=== PATIENT | male | born 2000 | race African-American/Black ===

== ENCOUNTER 2024-01-17 16:28 | Emergency (ER) | payer OTHER ==
[~2024-01-17] VITALS: Ht 193 cm; Wt 79.8 kg
[2024-01-17 16:28] VITALS: O2SAT 99
[2024-01-17] MEDS ORDERED: ONDANSETRON 4 MG/2 ML VIAL ONE (17:03)
[2024-01-17] MEDS ORDERED: HYDROMORPHONE 1 MG/1 ML DISP.SYRIN ONE (17:04)
[2024-01-17] MEDS: ONDANSETRON 4 MG/2 ML VIAL IV ONE (17:08)
[2024-01-17] MEDS: HYDROMORPHONE 1 MG/1 ML DISP.SYRIN IV ONE (17:08)
[2024-01-17] MEDS ORDERED: LIDOCAINE HCL 1% 20 ML VIAL ONE (17:17)
[2024-01-17] MEDS: LIDOCAINE HCL 1% 20 ML VIAL IJ ONE (17:26)
[2024-01-17] MEDS ORDERED: OXYC-133 PO (18:03)
== END 2024-01-17 18:38 | disposition home or self-care (01) ==
LOC: ER 16:30
DX: S63.296A Dislocation of distal interphalangeal joint of right little finger, initial encounter (principal); S63.260A Dislocation of metacarpophalangeal joint of right index finger, initial encounter; S40.011A Contusion of right shoulder, initial encounter; S09.8XXA Other specified injuries of head, initial encounter; M54.2 Cervicalgia; R51.9 Headache, unspecified; J45.909 Unspecified asthma, uncomplicated; Z79.899 Other long term (current) drug therapy; W18.39XA Other fall on same level, initial encounter; Y93.89 Activity, other specified; Y92.89 Other specified places as the place of occurrence of the external cause; Y99.8 Other external cause status
CPT/HCPCS: 26700; 26770; 70450; 72125; 73020; 73140; 96374; 96375; 99285; J1171; J2405; J3490; A4606; A4663